=== PATIENT | female | born 1970 | race Caucasian/White ===

== ENCOUNTER 2022-10-10 19:46 | Emergency (ER) | payer OTHER ==
[2022-10-10 20:07] VITALS: BP 150/84; PULSE 86; RESP 16; TEMP 99; BMI 26.6
== END 2022-10-10 21:14 | disposition home or self-care (01) ==
LOC: FER 19:46
DX: M79.671 Pain in right foot (principal); M76.61 Achilles tendinitis, right leg
CPT/HCPCS: 73630-TC-RT-FY; 99283-25